=== PATIENT | female | born 1995 | race Hispanic/Latino ===

== ENCOUNTER 2020-01-02 20:37 | Emergency (ER) | payer MEDICAID ==
[2020-01-02 21:20] LABS: Basophils # (Auto) 0.2 K/mm3 (0.0-0.1); Basophils % (Auto) 1.9 % (0.0-1.8); Eosinophils # (Auto) 0.3 K/mm3 (0.0-0.4); Eosinophils % (Auto) 3.4 % (0.0-4.3); Hemoglobin 13.1 gm/dl (10.1-14.3); Lymphocytes # (Auto) 3.8 K/mm3 (1.2-5.4); Lymphocytes % (Auto) 38.1 % (13.4-35.0); Mean Corpuscular HGB Conc 34 % (30-34); Mean Corpuscular Volume 94 fl (79-97); Monocytes # (Auto) 0.7 K/mm3 (0.0-0.8); Monocytes % (Auto) 7.5 % (0.0-7.3); Platelet Count 452 K/mm3 (140-440); Red Blood Count 4.03 M/mm3 (3.65-5.03); Red Cell Distribution Width 14.8 % (13.2-15.2)
--- NOTE | 2020-01-02 21:26 | Emergency Department Report ---
<SHERRI PIRES - Last Filed: 01/03/20 05:08> ED Psych HPI - General Chief Complaint: Psych Stated Complaint: SUICIDAL THOUGHTS/FEELS LIKE A SZ Time Seen by Provider: 01/02/20 21:15 Source: patient, old records reviewed (No previous [facility] record for review) Mode of arrival: Ambulatory Limitations: No Limitations - History of Present Illness Initial Comments: 24-year-old female with a past medical history major depression disorder, psychosis, PTSD, seizure disorder, and polysubstance abuse presents to the hospital planing of suicidal ideation for "a while." Patient states she was just discharged 2 days ago from [facility] she was admitted for 1.5-week with suicidal ideation. Patient states she is compliant with the meds prescribed except he forgot to include 2 of the medications and her discharge prescriptions. Patient states she just got the prescriptions today but these 2 meds and has not yet filled them. She endorses auditory hallucinations that tell her she is worthless. She denies visual hallucinations. She has had previous suicide attempt that involve slitting her wrists and trying to drown herself. Plan at this time is to cut her wrist. Patient currently lives at a sober living house and has a previous history of GHB, alcohol, methamphetamine, and marijuana abuse. She states she has not used any drugs in the last 2 weeks. - Related Data Home Medications Medication Instructions Recorded Confirmed Last Taken Levothyroxine [Synthroid] 25 mcg PO QAM 01/02/20 01/02/20 Unknown Loratadine 10 mg PO QAM 01/02/20 01/02/20 Unknown Nicotine [Habitrol] 14 mg TD DAILY 01/02/20 01/02/20 Unknown QUEtiapine [SEROquel] 200 mg PO QHS 01/02/20 01/02/20 Unknown Sertraline [Zoloft] 100 mg PO QDAY 01/02/20 01/02/20 Unknown levETIRAcetam [Keppra XR TAB] 500 mg PO BID 01/02/20 01/02/20 Unknown traZODone [Desyrel] 100 mg PO QHS 01/02/20 01/02/20 Unknown Buspirone HCl [busPIRone] 15 mg PO PRN PRN 01/04/20 01/04/20 Unknown Allergies Allergy/AdvReac Type Severity Reaction Status Date / Time nickel Allergy Hives Verified 01/02/20 21:03 vancomycin Allergy Itching Verified 01/02/20 21:03 ED Review of Systems Comment: All other systems reviewed and negative ED Past Medical Hx - Past Medical History Previous Medical History?: Yes Hx Seizures: Yes Hx Psychiatric Treatment: Yes (Major depression with psychosis, PTSD, Anxiety) - Surgical History Past Surgical History?: Yes Additional Surgical History: Brain, - Social History Smoking Status: Current Every Day Smoker Substance Use Type: Alcohol, Marijuana, Methamphetamines, Other - Medications Home Medications: Home Medications Medication Instructions Recorded Confirmed Last Taken Type Levothyroxine [Synthroid] 25 mcg PO QAM 01/02/20 01/02/20 Unknown History Loratadine 10 mg PO QAM 01/02/20 01/02/20 Unknown History Nicotine [Habitrol] 14 mg TD DAILY 01/02/20 01/02/20 Unknown History QUEtiapine [SEROquel] 200 mg PO QHS 01/02/20 01/02/20 Unknown History Sertraline [Zoloft] 100 mg PO QDAY 01/02/20 01/02/20 Unknown History levETIRAcetam [Keppra XR TAB] 500 mg PO BID 01/02/20 01/02/20 Unknown History traZODone [Desyrel] 100 mg PO QHS 01/02/20 01/02/20 Unknown History Buspirone HCl [busPIRone] 15 mg PO PRN PRN 01/04/20 01/04/20 Unknown History ED Physical Exam - General Limitations: No Limitations - Other Other exam information: General: No acute distress Head: Atraumatic Eyes: normal appearance ENT: Moist mucous membranes Neck: Normal appearance, no midline tenderness Chest: Clear to auscultation bilaterally CV: Regular rate and rhythm Abdomen: Soft, normal bowel sounds, nontender, nondistended, no rebound or guarding Back: Normal inspection Extremity: Normal inspection, full range of motion Neuro: Alert O x 3, no facial asymmetry, speech clear, no gross motor sensory deficit Psych: Appropriate behavior Skin: No rash ED Course - Reevaluation(s) Reevaluation #1: 01/03/20 05:08 nurse informed me of sbp in the 90's pt received trazadone and has been sleeping on and off. no complaints. steady gait while going to bathroom, hr in the 60's, no intervention recommended at this time. ED Medical Decision Making - Lab Data Result diagrams: 01/02/20 21:08 01/02/20 21:08 - Medical Decision Making 1013 signed. Patient recently discharged from inpatient psychiatric program. She was transferred with suicidal ideation. Patient pending psychiatric assessment for possible placement inpatient treatment Critical Care Time: No ED Disposition Clinical Impression: Bipolar disorder, Suicidal ideation, Medical clearance for psychiatric admission, MDD (major depressive disorder), recurrent episode, mild Disposition: DC-01 TO HOME OR SELFCARE Is pt being admited?: No Condition: Stable Instructions: Depression (ED), Suicide Prevention for Adults (ED) Additional Instructions: In case of an emergency, please contact the following numbers: [place] Crisis and Access Line: Number: Crisis Text Line: (Text START) Number: [phone] Suicide Prevention Line: Number: Emergency Number: 911 SUBSTANCE ABUSE PROGRAMS: Sober Living [facility]anna: Location: [place], [place] [facility] Address: [address] [place] [address] [facility]: Address: [address] [place] [address] [facility] Adult Rehabilitation: Address: [address] [place] [address] [facility] Community: Address: [address] [place] [address] [facility] Address: [address] [place] [address]. Please contact above numbers to attempt placement into free based program. Medicaid Programs: [facility]: Address: [address] [place] [address] [facility]: Address: [address] [place] [id number] OUTPATIENT MENTAL HEALTH RESOURCES [facility], [facility] Graham Krueger MD: [address] [place] [address] [place] [address] [facility]: [facility] [address] [place] [address] [place] [address] [phone] [facility]: [address] [place], [place] [id number] [phone] [facility]: Jr Sosa MD: [address] [facility] [address] [facility] [address] [facility]: [address] [place], [place] [id number] [place]: [facility] - [address] [place] [address] Sunday thru Sunday - 8am - 5pm Please follow-up with the [facility], or any of the other outpatient referrals given to you by the psychiatric team. Follow-up with a primary care physician in the next few days. Take any medications as prescribed. Return to the emergency department with any worsening of your symptoms, thoughts of harming your self or others, or with any acute distress. Referrals: PRIMARY CAREMD [Primary Care Provider] - 3-5 Days [facility] [Outside] - 3-5 Days [facility] [Provider Group] - 3-5 Days <KIM ORTEGA - Last Filed: 01/05/20 14:54> ED Review of Systems ROS: Stated complaint: SUICIDAL THOUGHTS/FEELS LIKE A SZ Other details as noted in HPI ED Course Vital Signs 01/02/20 01/02/20 01/03/20 21:15 21:30 02:18 Temperature 98.7 F 98.7 F 98.2 F Pulse Rate 95 H 95 H 80 Respiratory 18 18 16 Rate Blood Pressure 126/79 126/79 94/61 [Left] O2 Sat by Pulse 98 98 97 Oximetry 01/03/20 01/03/20 01/03/20 05:10 07:36 20:00 Temperature 98.5 F 98.0 F Pulse Rate 69 90 Respiratory 18 20 18 Rate Blood Pressure 92/58 111/61 [Left] O2 Sat by Pulse 99 98 99 Oximetry 01/03/20 01/04/20 01/04/20 20:27 04:10 07:39 Temperature 98.7 F 98.7 F 98.5 F Pulse Rate 86 70 86 Respiratory 18 18 20 Rate Blood Pressure 101/70 106/79 111/64 [Left] O2 Sat by Pulse 99 98 96 Oximetry 01/04/20 01/05/20 01/05/20 20:00 04:09 08:02 Temperature 99.2 F 98.9 F 99.6 F Pulse Rate 86 82 98 H Respiratory 18 20 18 Rate Blood Pressure 114/63 112/60 101/63 [Left] O2 Sat by Pulse 98 100 99 Oximetry ED Medical Decision Making - Lab Data Result diagrams: 01/02/20 21:08 01/02/20 21:08 - Medical Decision Making This patient has been cleared by the psychiatric team and they have rescinded the 1013. The patient is no longer feeling suicidal and feels hopeful towards future improvement. She is interested in getting back to the [facility] and has been accepted back there by the centers director. She has been given multiple outpatient psychiatric referrals. She has been instructed to return to the emergency department with any worsening of her symptoms, thoughts of harming herself or others, or with any acute distress. Critical care attestation.: If time is entered above; I have spent that time in minutes in the direct care of this critically ill patient, excluding procedure time. ED Disposition Is pt being admited?: No
[2020-01-02 21:38] LABS: BUN/Creatinine Ratio 28; Blood Urea Nitrogen 17 mg/dL (7-17); Calcium 9.3 mg/dL (8.4-10.2); Hemolysis Index 11
[2020-01-02 22:47] LABS: Bilirubin,Urine NEG (Negative); Blood,Urine NEG (Negative); Color,Urine Yellow (Yellow); Mucus,Urine FEW /HPF; Protein,Urine <15 mg/dL mg/dL (Negative); Urobilinogen,Urine < 2.0 mg/dL (<2.0); WBC,Urine < 1.0 /HPF (0.0-6.0)
[2020-01-02 22:51] LABS: Amphetamine Screen,Urine PRESUMPTIVE NEGATIVE; Benzodiazepines Screen,Urine PRESUMPTIVE NEGATIVE; Cocaine Screen,Urine PRESUMPTIVE NEGATIVE; Methadone Screen,Urine PRESUMPTIVE NEGATIVE; Opiate Screen,Urine PRESUMPTIVE NEGATIVE
[2020-01-02 23:03] LABS: Cannabinoid Screen,Urine PRESUMPTIVE POSITIVE
[2020-01-02] MEDS ORDERED: LEVETIRACETAM 500 MG PO SCH (23:15)
[2020-01-02] MEDS: levETIRAcetam 500 MG TAB PO SCH (23:33)
[2020-01-02] MEDS: QUEtiapine 200 MG TAB PO SCH (23:34)
[2020-01-02] MEDS ORDERED: traZODone 50 MG TAB PO ONE (23:50)
[2020-01-02] MEDS: traZODone 50 MG TAB PO SCH (23:55)
[2020-01-03] MEDS: LEVOTHYROXINE 25 MCG TAB PO SCH (06:34)
[2020-01-03] MEDS: levETIRAcetam 500 MG TAB PO SCH ×2 (10:49→21:47)
[2020-01-03] MEDS: NICOTINE 14 MG/24 HR PATCH TD SCH (10:50)
[2020-01-03] MEDS: SERTRALINE 100 MG TAB PO SCH (10:50)
[2020-01-03] MEDS: CETIRIZINE 10 MG TAB PO SCH (10:50)
[2020-01-03] MEDS: QUEtiapine 200 MG TAB PO SCH (21:47)
[2020-01-03] MEDS: traZODone 50 MG TAB PO SCH (21:47)
[2020-01-04] MEDS: LEVOTHYROXINE 25 MCG TAB PO SCH (06:11)
[2020-01-04] MEDS: NICOTINE 14 MG/24 HR PATCH TD SCH (10:15)
[2020-01-04] MEDS: SERTRALINE 100 MG TAB PO SCH (10:15)
[2020-01-04] MEDS: CETIRIZINE 10 MG TAB PO SCH (10:15)
[2020-01-04] MEDS: levETIRAcetam 500 MG TAB PO SCH ×2 (10:15→22:20)
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
[2020-01-04] MEDS ORDERED: BUSPIRONE HCL 15 MG PO PRN (15:35)
[2020-01-04] MEDS ORDERED: busPIRone 10 MG TAB PO PRN (15:42)
[2020-01-04] MEDS: QUEtiapine 200 MG TAB PO SCH (22:20)
[2020-01-04] MEDS: traZODone 50 MG TAB PO SCH (22:20)
[2020-01-05] MEDS: LEVOTHYROXINE 25 MCG TAB PO SCH (07:54)
[2020-01-05 08:03] VITALS: BP 101/63
[2020-01-05] MEDS: NICOTINE 14 MG/24 HR PATCH TD SCH (10:33)
[2020-01-05] MEDS: levETIRAcetam 500 MG TAB PO SCH (10:33)
[2020-01-05] MEDS: CETIRIZINE 10 MG TAB PO SCH (10:35)
[2020-01-05] MEDS: SERTRALINE 100 MG TAB PO SCH (10:35)
--- NOTE | 2020-01-05 13:28 | Progress Note ---
Subjective - Reason for Consult Consult date: 01/05/20 Reason for consult: MHE Requesting physician: SHERRI PIRES - Chief Complaint Chief complaint: PSYCH HPI Patient seen in room this AM, resting comfortably without distress, patient states today she feels better, denies suicidal thoughts, says she likes her current meds and would want to go back to her Sober living facility and the director had told her she can come back. She denies any auditory hallucinations. REVIEW OF SYSTEMS Constitutional: Negative for weight loss ENT: Negative for stridor Respiratory: Negative for cough or hemoptysis All other systems reviewed and are negative MENTAL STATUS EXAMINATION General Appearance and Behavior: Age appropriate,good hygiene, wearing appropria te clothes, good eye contact, cooperative polite with questioning. Cooperation: Participating/engaged Psychomotor Behavior: unremarkable and within normal limits Mood: "i feel better today" Affect and affective range: congruent Thought Process: Fluent/Logical Thought Content: Within reality Speech: Normal volume, Regular rate and rhythm Intellectual Functioning: Average Suicidal Ideation: Denies Homicidal Ideation: Denies HI Impulse Control: Unimpaired Insight and Judgment: Normal insight and judgment Memory: Normal Attention: Normal Orientation: Alert, oriented RECOMMENDATIONS MDD MEDICATIONS: Restart home meds Risks, benefits and alternatives of medications discussed with the patient, questions answered and consent obtained from patient. PSYCHOTHERAPY: Supportive psychotherapy provided MEDICAL: Per primary team DELIRIUM PRECAUTIONS: Please re-orient patient frequently, keep lights on during the day, and minimize benzodiazepines and opiates as these medications could worsen patient's confusion. 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 Please contact with any questions and/or concerns. Mental Status Exam - Vital signs Last Vital Signs Temp 99.6 F 01/05/20 08:02 Pulse 98 H 01/05/20 08:02 Resp 18 01/05/20 08:02 BP 101/63 01/05/20 08:02 Pulse Ox 99 01/05/20 08:02 Assessment and Plan - Patient Problems (1) MDD (major depressive disorder), recurrent episode, mild Current Visit: Yes Status: Acute
== END 2020-01-05 15:15 | disposition home or self-care (01) ==
LOC: EEVIPCON 20:37 → ED 20:37
DX: F31.9 Bipolar disorder, unspecified (principal); R45.851 Suicidal ideations; R56.9 Unspecified convulsions; F17.200 Nicotine dependence, unspecified, uncomplicated; F12.10 Cannabis abuse, uncomplicated; F15.10 Other stimulant abuse, uncomplicated; Z04.6 Encounter for general psychiatric examination, requested by authority; Z79.899 Other long term (current) drug therapy; Z88.8 Allergy status to other drugs, medicaments and biological substances
CPT/HCPCS: 36415; 80048; 80307; 80320; 81001; 84703; 85025; G0480; J3246